=== PATIENT | male | born 1965 | race Asian ===

== ENCOUNTER 2020-02-26 19:24 | Emergency (ER) | payer OTHER ==
[~2020-02-26] VITALS: Ht 182.9 cm; Wt 94.3 kg
[2020-02-26 20:12] LABS: PLATELET COUNT 237 K/uL (142-355)
[2020-02-26 20:13] LABS: POTASSIUM 4.7 mmol/L (3.6-5.2)
[2020-02-26 21:40] VITALS: BP 110/75; TEMP 98.2
[2020-02-26] MEDS ORDERED: TYLENOL325 MG PO (22:16)
[2020-02-26] MEDS ORDERED: KP FOLIC ACID1 MG PO (22:19)
[2020-02-26] MEDS ORDERED: PHENYTOIN EX100 MG PO (22:19)
[2020-02-26] MEDS ORDERED: LEVE500T5 PO (22:21)
[2020-02-26] MEDS ORDERED: METO25TA4 PO (22:22)
[2020-02-26] MEDS ORDERED: PRAVACHOL20 MG PO (22:24)
[2020-02-26] MEDS ORDERED: SENNA PLUS 50-81 CAP PO (22:24)
[2020-02-26] MEDS ORDERED: TRAM50TA PO (22:26)
[2020-02-26] MEDS ORDERED: ASCO500T18 PO (22:27)
== END 2020-02-26 21:40 | disposition still patient (30) ==
LOC: ED 19:24
PROVIDERS: Hospitalist
DX: F03.91 Unspecified dementia, unspecified severity, with behavioral disturbance (principal); Z87.820 Personal history of traumatic brain injury; Z03.818 Encounter for observation for suspected exposure to other biological agents ruled out; Z04.6 Encounter for general psychiatric examination, requested by authority
CPT/HCPCS: 80053; 80185; 81000; 85027; 87635; 93005; 99283; U0002